=== PATIENT | female | born 1995 | race Hispanic/Latino ===

== ENCOUNTER 2019-08-01 21:59 | Emergency (ER) | payer OTHER ==
[~2019-08-01] VITALS: Ht 165.1 cm; Wt 72.7 kg
[2019-08-02] MEDS ORDERED: IBUP-1022 PO (00:22)
[2019-08-02] MEDS ORDERED: PSEU120T19 PO (00:22)
[2019-08-02] MEDS ORDERED: FLON1SPR NARES (00:22)
[2019-08-02] MEDS ORDERED: KETOROLAC 60 MG/2 ML VIAL (J1885) IM ONE (00:30)
[2019-08-02] MEDS ORDERED: diphenhydrAMINE 25 MG CAP PO ONE (00:30)
[2019-08-02 00:37] VITALS: BP 125/77
== END 2019-08-02 00:40 | disposition home or self-care (01) ==
LOC: M ED 21:59
DX: H65.93 Unspecified nonsuppurative otitis media, bilateral (principal); R09.81 Nasal congestion
CPT/HCPCS: 96372; 99283; J1885

== ENCOUNTER 2019-08-26 10:00 | Emergency (ER) | payer OTHER ==
[~2019-08-26] VITALS: Ht 165.1 cm; Wt 74.6 kg
[~2019-08-26 10:00] MED LIST: FLON1SPR NARES; IBUP-1022 PO; PSEU120T19 PO
[2019-08-26] MEDS ORDERED: PSEU1TAB3 (10:13)
[2019-08-26] MEDS ORDERED: AZIT-12 (10:13)
[2019-08-26 10:50] LABS: BASO % 0.4 % (0.0-1.0); EOS % 1.1 % (0.0-3.0); HEMATOCRIT 44.4 % (36.0-47.0); LYMPH % 35.7 % (24.0-44.0); MEAN CORPUSCULAR HEMOGLOBIN 27.3 pg (27.0-33.0); MEAN CORPUSCULAR HGB CONC 31.5 g/dl (32.0-36.5); MEAN CORPUSCULAR VOLUME 86.7 fl (80.0-96.0); MONO # 0.2 10^3/uL (0.0-0.8); MONO % 8.5 % (0.0-5.0); NEUTROPHILS # 1.5 10^3/uL (1.5-8.5); NEUTROPHILS % 53.9 % (36.0-66.0); PLATELET COUNT, AUTOMATED 142 10^3/uL (150-450); RED BLOOD COUNT 5.12 10^6/uL (4.00-5.40); WHITE BLOOD COUNT 2.7 10^3/uL (4.0-10.0)
[2019-08-26 11:18] LABS: MONO REFLEX EBV COMP NEGATIVE (NEGATIVE)
[2019-08-26 11:24] LABS: INFLUENZA A AMPLIFICATION NEGATIVE (NEGATIVE); INFLUENZA B AMPLIFICATION POSITIVE (NEGATIVE)
[2019-08-26] MEDS ORDERED: IBUPROFEN 800 MG TAB PO ONE (11:30)
[2019-08-26 11:43] VITALS: BP 120/74
[2019-08-26] MEDS ORDERED: CETI-36 PO (11:50)
[2019-08-26] MEDS ORDERED: FLON1SPR NARES (11:50)
[2019-08-30 00:10] LABS: EBV AB TO NUCLEAR ANTIGEN 23.4 U/mL (0.0-17.9); EBV VIRAL CAPSID AG IgG 35.5 U/mL (0.0-17.9); EBV VIRAL CAPSID AG IgM <36.0 U/mL (0.0-35.9)
== END 2019-08-26 11:56 | disposition home or self-care (01) ==
LOC: M ED 10:00
DX: J10.89 Influenza due to other identified influenza virus with other manifestations (principal); Z79.899 Other long term (current) drug therapy

== ENCOUNTER 2019-11-04 20:46 | Emergency (ER) | payer OTHER ==
[~2019-11-04] VITALS: Ht 165.1 cm; Wt 76.0 kg
[~2019-11-04 20:46] MED LIST changes: +AZIT-12; +CETI-36 PO; +PSEU1TAB3
[2019-11-04] MEDS ORDERED: NORCO, ANEXSIA 5/325MG TABLET (HYDROcodone/ACETAMINOPHEN) PO ONE (21:15)
--- NOTE | 2019-11-04 22:06 | REPVR ---
PROCEDURE INFORMATION: Exam: US Pelvis Complete (transabdominal and transvaginal) Exam date and time: 11/04/19 (9:29pm) Age: 24 years old Clinical indication: Pelvic pain. Left adenexal pain. TECHNIQUE: Imaging protocol: Real-time transabdominal and transvaginal pelvic ultrasound with image documentation. Complete examination. COMPARISON: No relevant prior studies available FINDINGS: The LMP is reported to be: approx. 2 weeks ago The uterus is retroflexed, measuring 9.6 x 4.0 x 6.1 cm in dimensions. No uterine mass is seen. The endometrium is thin (4.5 mm thickness). The right ovary measures 3.3 x 2.3 x 3.2 cm in size. The left ovary measures 3.0 x 2.3 x 3.2 cm in size. Dominant left ovarian follicle (1.4 x 1.8 x 1.7 cm size) (1.6 cm avg. size). There is no evidence of ovarian torsion on Doppler evaluation. No free pelvic fluid is seen. No solid adnexal masses. IMPRESSION: No acute pathology. Dominant left ovarian follicle (1.6 cm avg. size). No evidence of ovarian torsion. Electronically signed by: Ling Jackson On 11/04/2019 22:05:30 PM
[2019-11-04 22:13] LABS: BASO % 0.6 % (0.0-1.0); EOS # 0.1 10^3/uL (0.0-0.5); EOS % 1.6 % (0.0-3.0); HEMATOCRIT 42.3 % (36.0-47.0); HEMOGLOBIN 13.7 g/dl (12.0-15.5); LYMPH # 2.3 10^3/uL (1.5-5.0); LYMPH % 37.5 % (24.0-44.0); MEAN CORPUSCULAR HEMOGLOBIN 27.4 pg (27.0-33.0); MEAN CORPUSCULAR HGB CONC 32.4 g/dl (32.0-36.5); MEAN CORPUSCULAR VOLUME 84.6 fl (80.0-96.0); MONO # 0.4 10^3/uL (0.0-0.8); MONO % 6.1 % (0.0-5.0); NEUTROPHILS # 3.4 10^3/uL (1.5-8.5); PLATELET COUNT, AUTOMATED 251 10^3/uL (150-450); WHITE BLOOD COUNT 6.2 10^3/uL (4.0-10.0)
[2019-11-04 22:21] LABS: BLOOD UREA NITROGEN 16 MG/DL (7-18); CALCIUM LEVEL 8.9 MG/DL (8.5-10.1); CARBON DIOXIDE LEVEL 28 MEQ/L (21-32); CHLORIDE LEVEL 109 MEQ/L (98-107); CREATININE FOR GFR 0.63 MG/DL (0.55-1.30); GLOMERULAR FILTRATION RATE > 60.0 (>60); GLUCOSE, FASTING 83 MG/DL (70-100); SODIUM LEVEL 142 MEQ/L (136-145)
[2019-11-04] MEDS ORDERED: KETO10TAB PO (22:37)
[2019-11-04 23:07] VITALS: BP 120/64
== END 2019-11-04 23:08 | disposition home or self-care (01) ==
LOC: M ED 20:46
DX: N94.0 Mittelschmerz (principal)

== ENCOUNTER → 2021-05-27 | Outpatient (CLI) | payer OTHER ==
[~2021-05-27] MED LIST changes: +KETO10TAB PO
--- NOTE | 2021-05-27 13:42 | REP ---
INDICATION: PAIN COMPARISON: None. TECHNIQUE: AP, lateral, and swimmers views. FINDINGS: Alignment and kyphosis is maintained. Vertebral bodies intact. No acute fracture / compression injury or subluxation. No degenerative changes. Paravertebral soft tissues are normal. IMPRESSION: Normal thoracic spine series. <Electronically signed by Cm Avitia > 05/27/21 [id number]
--- NOTE | 2021-05-27 13:44 | REP ---
INDICATION: PAIN COMPARISON: None. TECHNIQUE: AP, lateral, coned-down views of the lumbar spine. FINDINGS: Three views of the lumbosacral spine demonstrate satisfactory alignment and lordosis without acute fracture / compression injury or subluxation. IMPRESSION: 1. Normal age-appropriate lumbosacral spine radiographs. 2. No acute fracture/compression injury or subluxation. <Electronically signed by Cm Avitia > 05/27/21 [id number]
== END ==
LOC: M PLAIMG 12:59
PROVIDERS: ATTEND Internal Medicine
DX: M54.6 Pain in thoracic spine (principal); M54.5 Low back pain